=== PATIENT | male | born 1955 | race Two or more races ===

== ENCOUNTER 2018-04-03 23:22 | Emergency (ER) | payer BC ==
[~2018-04-03] VITALS: Ht 182.9 cm; Wt 74.8 kg
[2018-04-03 23:30] VITALS: BP 144/75
[2018-04-03] MEDS ORDERED: SULF1TAB24 PO (23:45)
[2018-04-03] MEDS ORDERED: DIPH25CA58 PO (23:45)
--- NOTE | 2018-04-03 23:45 | PHYS DOC ---
Adult General Chief Complaint Chief Complaint: INSECT BITE HPI HPI Patient is a 62 year old Persian-speaking male who presents today complaining of insect bite to the right calf that he noted today. Patient denies any fever. Denies any known injury. Historian was patient using the publication distributor for Persian who brought to the ED with. Review of Systems Review of Systems Constitutional: Denies fever or chills [] Eyes: Denies change in visual acuity, redness, or eye pain [] HENT: Denies nasal congestion or sore throat [] Respiratory: Denies cough or shortness of breath [] Cardiovascular: No additional information not addressed in HPI [] GI: Denies abdominal pain, nausea, vomiting, bloody stools or diarrhea [] : Denies dysuria or hematuria [] Musculoskeletal: Denies back pain or joint pain [] Integument: Reports insect bite to the right calf Neurologic: Denies headache, focal weakness or sensory changes [] All other systems were reviewed and found to be within normal limits, except as documented in this note. Physical Exam Physical Exam Constitutional: Well developed, well nourished, no acute distress, non-toxic appearance. [] Skin: Warm, dry, right calf with an area of erythema approximately 2 x 2 centimeters. No fluctuance to the area, no warmth to the area. Slight tenderness over the area, negative Homans sign to the right lower extremity. Last 2 right pedal pulse. Back: No tenderness, no CVA tenderness. [] Extremities: No tenderness, no cyanosis, no clubbing, ROM intact, no edema. [] Neurologic: Alert and oriented X 3, normal motor function, normal sensory function, no focal deficits noted. [] Psychologic: Affect normal, judgement normal, mood normal. [] EKG EKG [] Radiology/Procedures Radiology/Procedures [] Course & Med Decision Making Course & Med Decision Making Pertinent Labs and Imaging studies reviewed. (See chart for details) This is a 62-year-old Persian-speaking man who presents today with an insect bite to the right calf. Area does not appear infected but we will put this patient on antibiotics prophylaxis. Tetanus updated. Benadryl recommended. Instructed to return to the ED at any point symptoms worsen. Dragon Disclaimer Dragon Disclaimer This electronic medical record was generated, in whole or in part, using a voice recognition dictation system. Departure Departure Impression: Primary Impression: Insect bite of lower extremity Disposition: HOME, SELF-CARE Condition: STABLE Referrals: NO PCP (PCP) Follow-up with your doctor in one week as needed Patient Instructions: Insect Bite, [id number] Additional Instructions: You were evaluated for an insect bite to the right calf. Use the prescribed medications as ordered. Follow-up with your doctor in 1-2 weeks. Come back to the emergency room at any point symptoms worsen. Scripts Diphenhydramine Hcl (BENADRYL) 25 Mg Capsule 1 CAP PO Q6-8HRS, #30 CAP 1 Refill Prov: SANCHO MACE APRN 04/03/18 Sulfamethoxazole/Trimethoprim (BACTRIM DS TABLET) 1 Each Tablet 1 TAB PO BID, #20 TAB Prov: SANCHO MACE APRN 04/03/18 Problem Qualifiers Primary Impression: Insect bite of lower extremity Encounter type: initial encounter Laterality: right Qualified Codes: S80.861A - Insect bite (nonvenomous), right lower leg, initial encounter; W57.XXXA - Bitten or stung by nonvenomous insect and other nonvenomous arthropods, initial encounter SANCHO MACE APRN Apr 03, 2018 23:45
[2018-04-03] MEDS ORDERED: SMZ/TMP 800/160MG TABLET. PO ONE (23:55)
[2018-04-03] MEDS ORDERED: traMADol 50 MG TABLET PO ONE (23:55)
[2018-04-03] MEDS ORDERED: DIPHTH,PERTUSS(ACELL),TET TOX 0.5 ML DISP.SYRIN. VAX IM ONE ×2 (23:55→23:57)
== END 2018-04-04 00:19 | disposition home or self-care (01) ==
LOC: ER 23:22
DX: S80.861A Insect bite (nonvenomous), right lower leg, initial encounter (principal); W57.XXXA Bitten or stung by nonvenomous insect and other nonvenomous arthropods, initial encounter; Y93.89 Activity, other specified; Y92.89 Other specified places as the place of occurrence of the external cause; Y99.8 Other external cause status
CPT/HCPCS: 90471; 90715; 99283

== ENCOUNTER 2018-04-06 17:07 | Emergency (ER) | payer BC ==
[~2018-04-06] VITALS: Ht 167.6 cm; Wt 77.1 kg
[~2018-04-06 17:07] MED LIST: DIPH25CA58 PO; SULF1TAB24 PO
[2018-04-06] MEDS ORDERED: fentaNYL PF VIAL 100 MCG/2 ML VIAL ONE (17:39)
[2018-04-06 17:44] LABS: BASO % 0 % (0-3); EOS # 0.4 x10^3/uL (0.0-0.7); EOS % 6 % (0-3); HEMATOCRIT 41.5 % (39.0-53.0); HEMOGLOBIN 14.3 g/dL (13.0-17.5); LYMPH % 14 % (24-48); MEAN CORPUSCULAR HEMOGLOBIN 31 pg (25-35); MEAN CORPUSCULAR HGB CONC 35 g/dL (31-37); MEAN CORPUSCULAR VOLUME 90 fL (79-100); MONO # 0.4 x10^3/uL (0.0-1.1); MONO % 6 % (0-9); NEUT # 4.9 x10^3uL (1.8-7.7); NEUT % 73 % (31-73); PLATELET COUNT 250 x10^3/uL (140-400); RED BLOOD COUNT 4.63 x10^6/uL (4.30-5.70); RED CELL DISTRIBUTION WIDTH 12.6 % (11.5-14.5); WHITE BLOOD COUNT 6.8 x10^3/uL (4.0-11.0)
[2018-04-06] MEDS ORDERED: IV NORMAL SALINE 1000ML BAG 1,000 ML IV ONE (17:45)
[2018-04-06] MEDS ORDERED: fentaNYL PF VIAL 100 MCG/2 ML VIAL IV ONE (17:45)
[2018-04-06 17:55] LABS: CALCIUM 8.7 mg/dL (8.5-10.1); CREATININE 1.3 mg/dL (0.7-1.3); GFR 56.3; POTASSIUM 3.4 mmol/L (3.5-5.1)
[2018-04-06 18:01] LABS: ALBUMIN 3.3 g/dL (3.4-5.0); ALBUMIN/GLOBULIN RATIO 0.9 (1.0-1.7); TOTAL BILIRUBIN 1.5 mg/dL (0.2-1.0); TOTAL PROTEIN 6.8 g/dL (6.4-8.2)
[2018-04-06] MEDS ORDERED: VANCOMYCIN PER PHARMACY MC ONE (18:30)
[2018-04-06] MEDS ORDERED: HYDR-971 PO (18:57)
[2018-04-06] MEDS ORDERED: CEPH-264 PO (18:57)
--- NOTE | 2018-04-06 18:58 | PHYS DOC ---
Past Medical History Past Medical History: No Pertinent History Past Surgical History: Hip Replacement, Other Additional Past Surgical Histo: RIGHT INGUINAL HERNIA Alcohol Use: None Drug Use: None Adult General Chief Complaint Chief Complaint: LOWER EXTREMITY SWELLING HPI HPI Patient is a 62 year old male who presents with an infection to his right lower leg. The patient was seen at this facility a few days ago and put on Bactrim DS as well as Benadryl for an insect bite. The infection has worsened and he has now formed a large blister over the wound. He is also having a widespread generalized erythematous rash. He denies fever, nausea or vomiting. Review of Systems Review of Systems Constitutional: Denies fever or chills [] Eyes: Denies change in visual acuity, redness, or eye pain [] HENT: Denies nasal congestion or sore throat [] Respiratory: Denies cough or shortness of breath [] Cardiovascular: No additional information not addressed in HPI [] GI: Denies abdominal pain, nausea, vomiting, bloody stools or diarrhea [] : Denies dysuria or hematuria [] Musculoskeletal: Denies back pain or joint pain [] Integument: Generalized erythematous rash, 3 cm x 2 cm fluid-filled bulla to the right lower leg with erythema surrounding the wound Neurologic: Denies headache, focal weakness or sensory changes [] Endocrine: Denies polyuria or polydipsia [] All other systems were reviewed and found to be within normal limits, except as documented in this note. Current Medications Current Medications Current Medications Medications (Trade) Dose Ordered Sig/Corine Start Time Stop Time Status Last Admin Dose Admin Fentanyl Citrate (Fentanyl 2ml Vial) 100 mcg STK-MED ONCE 04/06/18 17:39 04/06/18 17:40 DC Sodium Chloride 1,000 ml @ 1,000 mls/hr 1X ONCE 04/06/18 17:45 04/06/18 18:44 DC 04/06/18 17:42 1,000 MLS/HR Vancomycin HCl (Vanco Per Pharmacy) 1 each 1X ONCE 04/06/18 18:30 04/06/18 20:13 DC Vancomycin HCl 2 gm/Sodium Chloride 500 ml @ 250 mls/hr 1X ONCE 04/06/18 19:00 04/06/18 20:59 04/06/18 18:48 250 MLS/HR Allergies Allergies Allergies Coded Allergies Type Severity Reaction Last Updated Verified sulfamethoxazole Allergy Unknown Rash 04/06/18 Yes trimethoprim Allergy Unknown Rash 04/06/18 Yes Physical Exam Physical Exam Constitutional: Well developed, well nourished, no acute distress, non-toxic appearance. [] HENT: Normocephalic, atraumatic, bilateral external ears normal, oropharynx moist, no oral exudates, nose normal. [] Eyes: PERRLA, EOMI, conjunctiva normal, no discharge. [] Neck: Normal range of motion, no tenderness, supple, no stridor. [] Cardiovascular:Heart rate regular rhythm, no murmur [] Lungs & Thorax: Bilateral breath sounds clear to auscultation [] Abdomen: Bowel sounds normal, soft, no tenderness, no masses, no pulsatile masses. [] Skin: Warm, dry, no erythema, no rash. [] Back: No tenderness, no CVA tenderness. [] Extremities: No tenderness, no cyanosis, no clubbing, ROM intact, no edema. [] Neurologic: Alert and oriented X 3, normal motor function, normal sensory function, no focal deficits noted. [] Psychologic: Affect normal, judgement normal, mood normal. [] Current Patient Data Vital Signs Vital Signs Date Time Temp Pulse Resp B/P (MAP) Pulse Ox O2 Delivery O2 Flow Rate FiO2 04/06/18 17:43 19 94 Room Air 04/06/18 17:27 98.3 75 144/73 (96) 98.3 Lab Values Laboratory Tests Test 04/06/18 17:27 White Blood Count 6.8 x10^3/uL (4.0-11.0) Red Blood Count 4.63 x10^6/uL (4.30-5.70) Hemoglobin 14.3 g/dL (13.0-17.5) Hematocrit 41.5 % (39.0-53.0) Mean Corpuscular Volume 90 fL (79-100) Mean Corpuscular Hemoglobin 31 pg (25-35) Mean Corpuscular Hemoglobin Concent 35 g/dL (31-37) Red Cell Distribution Width 12.6 % (11.5-14.5) Platelet Count 250 x10^3/uL (140-400) Neutrophils (%) (Auto) 73 % (31-73) Lymphocytes (%) (Auto) 14 % (24-48) L Monocytes (%) (Auto) 6 % (0-9) Eosinophils (%) (Auto) 6 % (0-3) H Basophils (%) (Auto) 0 % (0-3) Neutrophils # (Auto) 4.9 x10^3uL (1.8-7.7) Lymphocytes # (Auto) 1.0 x10^3/uL (1.0-4.8) Monocytes # (Auto) 0.4 x10^3/uL (0.0-1.1) Eosinophils # (Auto) 0.4 x10^3/uL (0.0-0.7) Basophils # (Auto) 0.0 x10^3/uL (0.0-0.2) Sodium Level 138 mmol/L (136-145) Potassium Level 3.4 mmol/L (3.5-5.1) L Chloride Level 103 mmol/L (98-107) Carbon Dioxide Level 26 mmol/L (21-32) Anion Gap 9 (6-14) Blood Urea Nitrogen 9 mg/dL (8-26) Creatinine 1.3 mg/dL (0.7-1.3) Estimated GFR (Cockcroft-Gault) 56.3 BUN/Creatinine Ratio 7 (6-20) Glucose Level 128 mg/dL (70-99) H Lactic Acid Level 2.2 mmol/L (0.4-2.0) H Calcium Level 8.7 mg/dL (8.5-10.1) Total Bilirubin 1.5 mg/dL (0.2-1.0) H Aspartate Amino Transferase (AST) 112 U/L (15-37) H Alanine Aminotransferase (ALT) 115 U/L (16-63) H Alkaline Phosphatase 197 U/L (46-116) H Total Protein 6.8 g/dL (6.4-8.2) Albumin 3.3 g/dL (3.4-5.0) L Albumin/Globulin Ratio 0.9 (1.0-1.7) L Laboratory Tests 04/06/18 17:27 Laboratory Tests 04/06/18 17:27 EKG EKG [] Radiology/Procedures Radiology/Procedures [] Course & Med Decision Making Course & Med Decision Making Pertinent Labs and Imaging studies reviewed. (See chart for details) []The patient was given vancomycin in the emergency department. He is to be discharged on oral antibiotic therapy. He is to stop the Bactrim. He is to follow-up with his primary care provider in 2 days for recheck or return to the emergency department if worsening. His family member is been instructed to do wound checks to 3 times daily. They are in agreement with this plan. Dragon Disclaimer Dragon Disclaimer This electronic medical record was generated, in whole or in part, using a voice recognition dictation system. Departure Departure Impression: Primary Impression: Skin infection Additional Impression: Drug reaction Disposition: HOME, SELF-CARE Condition: STABLE Referrals: NO PCP (PCP) Patient Instructions: Drug Allergy, Skin Infections Additional Instructions: Stop the Bactrim. We will switch to a different oral antibiotic. You have also been given a prescription for pain medication. Do not drive or operate heavy machinery while taking that medication. Follow-up with your primary care for a recheck of your labs and wound within 2 days. If worsening return to the emergency department. Scripts Hydrocodone/Apap 5-325 (NORCO 5-325 TABLET) 1 Each Tablet 1 TAB PO PRN Q6HRS PRN for PAIN, #14 TAB 0 Refills Prov: TERRANCE VILLAVICENCIO APRN 04/06/18 Cephalexin (KEFLEX) 500 Mg Capsule 1 CAP PO TID, #30 CAP Prov: TERRANCE VILLAVICENCIO APRN 04/06/18 Problem Qualifiers TERRANCE VILLAVICENCIO APRN Apr 06, 2018 18:58
[2018-04-06] MEDS ORDERED: VANCOMYCIN 2 GM in IV NORMAL SALINE 500ML BAG 500 ML IV ONE (19:00)
[2018-04-06 20:49] VITALS: BP 126/74
--- NOTE | 2018-04-07 06:14 | EKG ---
[facility] [address] [place] [address] Test Date: 2018-04-06 Test Time: 18:00:56 Pat Name: CYNDY VILLEDA Department: Room: Gender: M Chief Cruiser: : 1955 Requested By: JOCELIN AYALA Order Number: [id number] Reading MD: Aurelio Daniels MD Measurements Intervals [place] Rate: 67 P: 43 VA: 156 QRS: 24 QRSD: 74 T: 30 QT: 390 QTc: 415 Interpretive Statements SINUS RHYTHM Electronically Signed On 04-07-2018 10:53:22 CDT by Aurelio Daniels MD
== END 2018-04-06 21:22 | disposition home or self-care (01) ==
LOC: ER 17:07
DX: L08.89 Other specified local infections of the skin and subcutaneous tissue (principal); T37.0X5A Adverse effect of sulfonamides, initial encounter; Z96.649 Presence of unspecified artificial hip joint; Z88.1 Allergy status to other antibiotic agents; Z88.2 Allergy status to sulfonamides; Y92.89 Other specified places as the place of occurrence of the external cause
CPT/HCPCS: 36415; 80053; 83605; 85025; 87040; 93005; 96365; 96366; 96375; 99285; J3010; J3370; J7030; J7040; 96361